=== PATIENT | female | born 1965 | race Caucasian/White ===

== ENCOUNTER 2018-10-03 05:54 | Day surgery (SDC) | payer OTHER ==
[2018-10-03] MEDS ORDERED: LIDOCAINE 2% (SDV) 5 ML INJ (07:48)
[2018-10-03] MEDS ORDERED: PROPOFOL 40 ML (07:48)
[2018-10-03] MEDS ORDERED: ONDANSETRON 4 MG INJ IV (08:00)
[2018-10-03] MEDS ORDERED: PROPOFOL 20 ML (08:14)
== END 2018-10-03 14:33 | disposition home or self-care (01) ==
LOC: GIL 05:54
DX: Z12.11 Encounter for screening for malignant neoplasm of colon (principal); D12.5 Benign neoplasm of sigmoid colon; K29.50 Unspecified chronic gastritis without bleeding; K21.0 Gastro-esophageal reflux disease with esophagitis; K64.1 Second degree hemorrhoids
CPT/HCPCS: 43239; 88305